=== PATIENT | male | born 1985 | race Asian ===

== ENCOUNTER 2019-05-16 12:36 | Emergency (ER) | payer OTHER ==
[~2019-05-16] VITALS: Ht 167.6 cm; Wt 61.2 kg
[2019-05-16 14:22] LABS: BASO % 0 % (0-3); EOS % 0 % (0-3); HEMATOCRIT 45.8 % (39.0-53.0); HEMOGLOBIN 15.5 g/dL (13.0-17.5); LYMPH # 1.6 x10^3/uL (1.0-4.8); LYMPH % 16 % (24-48); MEAN CORPUSCULAR HEMOGLOBIN 31 pg (25-35); MEAN CORPUSCULAR HGB CONC 34 g/dL (31-37); MEAN CORPUSCULAR VOLUME 91 fL (79-100); MONO # 0.6 x10^3/uL (0.0-1.1); MONO % 6 % (0-9); NEUT # 7.5 x10^3/uL (1.8-7.7); NEUT % 77 % (31-73); PLATELET COUNT 238 x10^3/uL (140-400); RED BLOOD COUNT 5.04 x10^6/uL (4.30-5.70); RED CELL DISTRIBUTION WIDTH 12.9 % (11.5-14.5); WHITE BLOOD COUNT 9.8 x10^3/uL (4.0-11.0)
[2019-05-16 14:33] LABS: CALCIUM 9.2 mg/dL (8.5-10.1); CREATININE 0.8 mg/dL (0.7-1.3); GFR 111.3; POTASSIUM 3.7 mmol/L (3.5-5.1)
--- NOTE | 2019-05-16 14:39 | RAD ---
AP, oblique, sunrise, and lateral views of the right knee were obtained. Indication: Pain and swelling Comparison: none. Findings: No fracture, dislocation, significant degenerative changes, or effusion is seen. There does appear to be some cutaneous edema. Electronically signed by: Kelby Reid MD (05/16/2019 2:36 PM) [facility]
--- NOTE | 2019-05-16 14:44 | PHYS DOC ---
Past Medical History Past Medical History: No Pertinent History Past Surgical History: No Surgical History Additional Information: 4-5 cigarettes daily Alcohol Use: Occasionally Drug Use: None Adult General Chief Complaint Chief Complaint: KNEE SWELLING HPI HPI Patient is a 33 year old male who presents with came from [facility] urgent care. They sent him here because he is having acute right knee pain for the last 2 days. He states that he can walk on it but is very painful. He states that he has a job where he is standing and is very painful. Patient now has redness that extends from right below the patella down to about mid jacinto on the right leg. Patient states when he is up and moving his pain is a 7 out of 10 but when he is just sitting there there is no pain. Review of Systems Review of Systems Musculoskeletal: Denies back pain. Right knee 2+ joint pain [] Integument: Right jacinto redness. Denies rash or skin lesions [] All other systems were reviewed and found to be within normal limits, except as documented in this note. Allergies Allergies Allergies Coded Allergies Type Severity Reaction Last Updated Verified No Known Drug Allergies 05/16/19 No Physical Exam Physical Exam Constitutional: Well developed, well nourished, no acute distress, non-toxic appearance. [] HENT: Normocephalic, atraumatic, bilateral external ears normal, oropharynx moist, no oral exudates, nose normal. [] Eyes: PERRLA, EOMI, conjunctiva normal, no discharge. [] Neck: Normal range of motion, no tenderness, supple, no stridor. [] Cardiovascular:Heart rate regular rhythm, no murmur [] Lungs & Thorax: Bilateral breath sounds clear to auscultation [] Abdomen: Bowel sounds normal, soft, no tenderness, no masses, no pulsatile masses. [] Skin: Warm, dry, Right jacinto erythema and is not circumfisial, no rash. [] Back: No tenderness, no CVA tenderness. [] Extremities: No tenderness, no cyanosis, no clubbing, Right knee ROM not intact, Right knee 2+ edema. [] Neurologic: Alert and oriented X 3, normal motor function, normal sensory function, no focal deficits noted. [] Psychologic: Affect normal, judgement normal, mood normal. [] Current Patient Data Vital Signs Vital Signs Date Time Temp Pulse Resp B/P (MAP) Pulse Ox O2 Delivery O2 Flow Rate FiO2 12/20/19 13:00 98.6 100 16 135/96 (109) 99 Room Air 98.6 Lab Values Laboratory Tests Test 05/16/19 13:40 White Blood Count 9.8 x10^3/uL (4.0-11.0) Red Blood Count 5.04 x10^6/uL (4.30-5.70) Hemoglobin 15.5 g/dL (13.0-17.5) Hematocrit 45.8 % (39.0-53.0) Mean Corpuscular Volume 91 fL (79-100) Mean Corpuscular Hemoglobin 31 pg (25-35) Mean Corpuscular Hemoglobin Concent 34 g/dL (31-37) Red Cell Distribution Width 12.9 % (11.5-14.5) Platelet Count 238 x10^3/uL (140-400) Neutrophils (%) (Auto) 77 % (31-73) H Lymphocytes (%) (Auto) 16 % (24-48) L Monocytes (%) (Auto) 6 % (0-9) Eosinophils (%) (Auto) 0 % (0-3) Basophils (%) (Auto) 0 % (0-3) Neutrophils # (Auto) 7.5 x10^3/uL (1.8-7.7) Lymphocytes # (Auto) 1.6 x10^3/uL (1.0-4.8) Monocytes # (Auto) 0.6 x10^3/uL (0.0-1.1) Eosinophils # (Auto) 0.0 x10^3/uL (0.0-0.7) Basophils # (Auto) 0.0 x10^3/uL (0.0-0.2) Erythrocyte Sedimentation Rate 29 (0-15) H Sodium Level 143 mmol/L (136-145) Potassium Level 3.7 mmol/L (3.5-5.1) Chloride Level 102 mmol/L (98-107) Carbon Dioxide Level 28 mmol/L (21-32) Anion Gap 13 (6-14) Blood Urea Nitrogen 14 mg/dL (8-26) Creatinine 0.8 mg/dL (0.7-1.3) Estimated GFR (Cockcroft-Gault) 111.3 BUN/Creatinine Ratio 18 (6-20) Glucose Level 103 mg/dL (70-99) H Lactic Acid Level 1.1 mmol/L (0.4-2.0) Calcium Level 9.2 mg/dL (8.5-10.1) Total Bilirubin 0.9 mg/dL (0.2-1.0) Aspartate Amino Transferase (AST) 17 U/L (15-37) Alanine Aminotransferase (ALT) 19 U/L (16-63) Alkaline Phosphatase 62 U/L (46-116) C-Reactive Protein, Quantitative 18.9 mg/L (0-3.3) H Total Protein 8.7 g/dL (6.4-8.2) H Albumin 4.5 g/dL (3.4-5.0) Albumin/Globulin Ratio 1.1 (1.0-1.7) Laboratory Tests 05/16/19 13:40 Laboratory Tests 05/16/19 13:40 EKG EKG [] Radiology/Procedures Radiology/Procedures [] Impressions: [place] [address] IMAGING REPORT Signed PATIENT: JUAN M ALMANZA ACCOUNT: [id number] : 1985 LOCATION: ER AGE: 33 SEX: M EXAM STATUS: REG ER ORD. PHYSICIAN: IVAN GUERRA APRN REASON: pain, swelling PROCEDURE: KNEE RIGHT 4V AP, oblique, sunrise, and lateral views of the right knee were obtained. Indication: Pain and swelling Comparison: none. Findings: No fracture, dislocation, significant degenerative changes, or effusion is seen. There does appear to be some cutaneous edema. Electronically signed by: Kelby Reid MD (05/16/2019 2:36 PM) [facility] DICTATED and SIGNED BY: KELBY REID MD DATE: 05/16/[address] [id number] IMAGING REPORT Signed PATIENT: JUAN M ALMANZA ACCOUNT: [id number] : 1985 LOCATION: ER AGE: 33 SEX: M EXAM STATUS: REG ER ORD. PHYSICIAN: IVAN GUERRA APRN REASON: pain PROCEDURE: VENOUS LOWER EXTREMITY RIGHT Examination: Right Lower Extremity Venous Doppler Ultrasound History: Right leg pain Comparison: None Procedure: Slade scale, color flow 2D and spectal waveform analysis images are obtained with and without compression in the area of the common femoral vein, superficial femoral vein - femoral vein junction, main femoral vein (superficial femoral vein) and popliteal vein. Veins of the proximal calf are also imaged. Findings: There is normal duplex flow, color flow and compressibility of all visualized vein segments. No evidence of deep venous thrombus is present. Impression: No evidence of DVT in the right lower extremity venous system. Electronically signed by: Ton Hollins MD (05/16/2019 4:36 PM) [id number] DICTATED and SIGNED BY: TON HOLLINS MD DATE: 05/16/19 1636 Course & Med Decision Making Course & Med Decision Making No joint laxity. There is 1-2+ swelling to the right knee but there is no rednes s or heat and no tenderness with palpation. No tenderness to palpation to the leg or calf. Pedal pulses strong and present. There is an area of redness that is non-blistered and non-draining that extends from right below the patella on the lower leg down to mid jacinto. No pedal edema. Afebrile. Patient has no other complaints and denies any other symptoms. When patient is asked to bend the leg he states he can do it but is very painful. Alert and oriented. Speaks in full clear sentences. Mucus membranes moist. Denies any pain at this time while sitting in the bed. Patient has an elevated CRP but all other blood work is within normal limits. Vital signs within normal limits. I have gone over this patient and the care plan with Dr Aguilar. Dr. Aguilar has examined this patient. Patient is given a dose of Rocephin before leaving. Ultrasound shows no acute findings. Xray shows: No fracture, dislocation, significant degenerative changes, or effusion is seen. There does appear to be some cutaneous edema. Dragon Disclaimer Dragon Disclaimer This electronic medical record was generated, in whole or in part, using a voice recognition dictation system. Departure Departure Impression: Primary Impression: Cellulitis Disposition: HOME, SELF-CARE Condition: STABLE Referrals: NO PCP (PCP) Patient Instructions: Cellulitis, [id number] Additional Instructions: Follow-up with primary care provider. Take medications with food and as prescribed. Scripts Hydrocodone/Apap 5-325 (NORCO 5-325 TABLET) 1 Each Tablet 1 TAB PO PRN Q6HRS PRN for PAIN, #10 TAB 0 Refills Prov: IVAN GUERRA APRN 05/16/19 Ibuprofen (IBUPROFEN) 600 Mg Tablet 600 MG PO PRN Q6HRS PRN for INFLAMMATION, #20 TAB Prov: IVAN GUERRA APRN 05/16/19 Cephalexin (KEFLEX) 500 Mg Capsule 500 MG PO QID for 10 Days, #40 CAP Prov: IVAN GUERRA APRN 05/16/19 Problem Qualifiers Primary Impression: Cellulitis Site of cellulitis: extremity Site of cellulitis of extremity: lower extremity Laterality: right Qualified Codes: L03.115 - Cellulitis of right lower limb IVAN GUERRA APRN May 16, 2019 14:44
[2019-05-16 14:45] LABS: ALBUMIN 4.5 g/dL (3.4-5.0); ALBUMIN/GLOBULIN RATIO 1.1 (1.0-1.7); C-REACTIVE PROTEIN 18.9 mg/L (0-3.3); TOTAL BILIRUBIN 0.9 mg/dL (0.2-1.0); TOTAL PROTEIN 8.7 g/dL (6.4-8.2)
--- NOTE | 2019-05-16 16:39 | RAD ---
Examination: Right Lower Extremity Venous Doppler Ultrasound History: Right leg pain Comparison: None Procedure: Slade scale, color flow 2D and spectal waveform analysis images are obtained with and without compression in the area of the common femoral vein, superficial femoral vein - femoral vein junction, main femoral vein (superficial femoral vein) and popliteal vein. Veins of the proximal calf are also imaged. Findings: There is normal duplex flow, color flow and compressibility of all visualized vein segments. No evidence of deep venous thrombus is present. Impression: No evidence of DVT in the right lower extremity venous system. Electronically signed by: Ton Love MD (05/16/2019 4:36 PM) [id number]
[2019-05-16] MEDS ORDERED: HYDR-3164 PO (16:49)
[2019-05-16] MEDS ORDERED: CEPH-264 PO (16:49)
[2019-05-16] MEDS ORDERED: IBUP-1007 PO (16:49)
[2019-05-16] MEDS ORDERED: cefTRIAXone IV Push 1 GM VIAL. IVP ONE (17:00)
[2019-05-16 17:40] VITALS: BP 115/69
== END 2019-05-16 17:48 | disposition home or self-care (01) ==
LOC: ER 12:36
DX: L03.115 Cellulitis of right lower limb (principal); F17.210 Nicotine dependence, cigarettes, uncomplicated
CPT/HCPCS: 36415; 73564; 80053; 83605; 85025; 85651; 86140; 87040; 93971; 96374; 99285; J0696

== ENCOUNTER 2021-08-29 15:10 | Emergency (ER) | payer OTHER ==
[~2021-08-29] VITALS: Ht 170.2 cm; Wt 75.0 kg
[~2021-08-29 15:10] MED LIST: CEPH-264 PO; HYDR-3164 PO; IBUP-1007 PO
[2021-08-29 15:36] VITALS: BP 191/93
[2021-08-29] MEDS ORDERED: LIDOCAINE 2% Multi-Dose 20 ML VIAL. IJ ONE (15:45)
--- NOTE | 2021-08-29 16:14 | RAD ---
XR FINGER(S)_LEFT 2+VIEWS_RT DATE: 08/29/2021 3:40 PM INDICATION: cut index finger in saw COMPARISON: None. FINDINGS/ IMPRESSION: Injury to the tip of the second distal phalanx with displaced traumatic avulsion of the distal tuft. No metallic foreign body. Electronically signed by: Tono Ortega MD (08/29/2021 4:11 PM) [facility]
[2021-08-29] MEDS ORDERED: DIPHTH,PERTUSS(ACELL),TET TOX 0.5 ML DISP.SYRIN. VAX IM ONE (16:30)
[2021-08-29] MEDS ORDERED: CEPH500C PO (16:30)
[2021-08-29] MEDS ORDERED: HYDR-2761 PO (16:30)
--- NOTE | 2021-08-29 16:30 | PHYS DOC ---
Past Medical History Past Medical History: No Pertinent History Past Surgical History: No Surgical History Smoking Status: Current Some Day Smoker Alcohol Use: Rarely Drug Use: None General Adult EDM: Chief Complaint: FINGER INJURY HPI: HPI: Patient is a 35-year-old male that presents today with an injury to his left index finger. 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 No active bleeding noted, patient states his tetanus is not up-to-date. Review of Systems: Review of Systems: Constitutional: Denies fever or chills. [] Eyes: Denies change in visual acuity. [] HENT: Denies nasal congestion or sore throat. [] Respiratory: Denies cough or shortness of breath. [] Cardiovascular: Denies chest pain or edema. [] GI: Denies abdominal pain, nausea, vomiting, bloody stools or diarrhea. [] : Denies dysuria. [] Musculoskeletal: Injury to left index finger Integument: Denies rash. [] Neurologic: Denies headache, focal weakness or sensory changes. [] Endocrine: Denies polyuria or polydipsia. [] Lymphatic: Denies swollen glands. [] Psychiatric: Denies depression or anxiety. [] Heart Score: C/O Chest Pain: No Risk Factors: Risk Factors: DM, Current or recent (<one month) smoker, HTN, HLP, family history of CAD, obesity. Risk Scores: Score 0 - 3: 2.5% MACE over next 6 weeks - Discharge Home Score 4 - 6: 20.3% MACE over next 6 weeks - Admit for Clinical Observation Score 7 - 10: 72.7% MACE over next 6 weeks - Early Invasive Strategies Current Medications: Current Medications Medications (Trade) Dose Ordered Sig/Artem Start Time Stop Time Status Last Admin Dose Admin Cefazolin Sodium/ Dextrose 50 ml @ 100 mls/hr 1X ONCE 08/29/21 15:30 08/29/21 15:59 DC Diphtheria/ Tetanus/Acell Pertussis (Boostrix) 0.5 ml ONCE ONCE 08/29/21 16:15 08/29/21 16:16 UNV Lidocaine HCl (Lidocaine 2% 20ml Vial) 20 ml 1X ONCE 08/29/21 15:45 08/29/21 15:46 DC Allergies: Allergies: Allergies Coded Allergies Type Severity Reaction Last Updated Verified No Known Drug Allergies 05/16/19 No Physical Exam: PE: Constitutional: Well developed, well nourished, mild distress, non-toxic appearance. [] HENT: Normocephalic, atraumatic, bilateral external ears normal, oropharynx moist, no oral exudates, nose normal. [] Eyes: PERRLA, EOMI, conjunctiva normal, no discharge. [] Neck: Normal range of motion, no tenderness, supple, no stridor. [] Cardiovascular:Heart rate regular rhythm, no murmur [] Lungs & Thorax: Bilateral breath sounds clear to auscultation [] Abdomen: Bowel sounds normal, soft, no tenderness, no masses, no pulsatile masses. [] Skin: Warm, dry, no erythema, no rash. [] Back: No tenderness, no CVA tenderness. [] Extremities: Amputation of the distal left index finger, nailbed is noted but no nail is in place, no active bleeding noted, patient is able to move his finger and does have sensation in the finger Neurologic: Alert and oriented X 3, normal motor function, normal sensory function, no focal deficits noted. [] Psychologic: Affect normal, judgement normal, mood normal. [] Current Patient Data: Vital Signs: Vital Signs Date Time Temp Pulse Resp B/P (MAP) Pulse Ox O2 Delivery O2 Flow Rate FiO2 08/29/21 15:36 98.0 100 16 191/93 (125) 100 Room Air 98.0 Vital Signs Date Time Temp Pulse Resp B/P (MAP) Pulse Ox O2 Delivery O2 Flow Rate FiO2 08/29/21 15:36 98.0 100 16 191/93 (125) 100 Room Air 98.0 EKG: EKG: [] Radiology/Procedures: Radiology/Procedures: REASON: cut index finger in saw PROCEDURE: FINGER(S) LEFT XR FINGER(S)_LEFT 2+VIEWS_RT DATE: 08/29/2021 3:40 PM INDICATION: cut index finger in saw COMPARISON: None. FINDINGS/ IMPRESSION: Injury to the tip of the second distal phalanx with displaced traumatic avulsion of the distal tuft. No metallic foreign body. Electronically signed by: Tono Ortega MD (08/29/2021 4:11 PM) [facility] [] Course & Med Decision Making: Course & Med Decision Making Pertinent Labs and Imaging studies reviewed. (See chart for details) 1535 digital block performed to the left index finger using lidocaine 2% for mL. Finger was irrigated with 120 mL of normal saline. 1540 called to [facility] transfer center, I was able to speak with Dr. Avila, plastic surgeon, he is requesting images of the injury be sent to him, including x- rays. 1610 Dr. Hartley called back and states that he is agreeable to accepting this patient as a transfer for surgical repair of his injured left finger. Patient was informed of the plan of care, patient has been given 2 g of Ancef, and updated tetanus shot Dr. Vazquez is also requesting that pain medication and Keflex be called into his local pharmacy for pickup after his procedure. [address] Snowden in the [facility] emergency department and gave him report on this patient, he will be transferred by private vehicle to [facility] ER for further evaluation by Dr. Hartley. Patient is informed to stay nothing by mouth, and I will let him know that prescriptions have been called in already for antibiotics. Dragon Disclaimer: Dragon Disclaimer: This electronic medical record was generated, in whole or in part, using a voice recognition dictation system. Departure Departure Impression: Primary Impression: Laceration of index finger with damage to nail Qualified Codes: S61.311A - Laceration without foreign body of left index finger with damage to nail, initial encounter Additional Impression: Fracture of distal phalanx of index finger Qualified Codes: S62.631B - Displaced fracture of distal phalanx of left index finger, initial encounter for open fracture Disposition: 02 SHORT TERM HOSPITAL Condition: STABLE Referrals: NO PCP (PCP) Scripts Hydrocodone Bit/Acetaminophen (HYDROCODONE-APAP 5-325 ) 1 Tab Tablet 2 TAB PO PRN Q6HRS PRN for PAIN, #30 TAB 0 Refills Prov: RAVI MACHUCA SMOKE CHASER 08/29/21 Cephalexin (KEFLEX) 500 Mg Capsule 1 CAP PO QID, #40 CAP Prov: RAVI MACHUCA SMOKE CHASER 08/29/21 RAVI MACHUCA APRN Aug 29, 2021 16:30
== END 2021-08-29 16:57 | disposition short-term general hospital (02) ==
LOC: ER 15:10
DX: S62.631B Displaced fracture of distal phalanx of left index finger, initial encounter for open fracture (principal); F17.200 Nicotine dependence, unspecified, uncomplicated; W23.0XXA Caught, crushed, jammed, or pinched between moving objects, initial encounter; Y93.89 Activity, other specified; Y92.89 Other specified places as the place of occurrence of the external cause; Y99.8 Other external cause status
CPT/HCPCS: 64450; 73140; 90471; 90715; 96365; 99285; J0690